=== PATIENT | female | born 1980 | race Caucasian/White ===

== ENCOUNTER 2019-08-16 10:03 | Emergency (ER) | payer SELFPAY ==
--- NOTE | 2019-08-16 11:06 | ER Document Report ---
HPI - HPI Time Seen by Provider: 08/16/19 10:39 Pain Level: Denies Notes: 38-year-old female presented emergency department with request for medication refill. Patient reports she takes anxiety medications however she is . She is unsure who to see for medication refill. She states she just moved to this area. Past Medical History - General Information source: Patient - Social History Smoking Status: Never Smoker Chew tobacco use (# tins/day): No Frequency of alcohol use: None Drug Abuse: None Family History: Reviewed & Not Pertinent Patient has suicidal ideation: No Patient has homicidal ideation: No Psychiatric Medical History: Reports: Hx Anxiety Vertical Provider Document - CONSTITUTIONAL Notes: PHYSICAL EXAMINATION: GENERAL: Well-appearing, well-nourished and in no acute distress. HEAD: Atraumatic, normocephalic. EYES: Pupils equal round extraocular movements intact, conjunctiva are normal. ENT: Nares patent NECK: Normal range of motion LUNGS: No respiratory distress Musculoskeletal: Normal range of motion NEUROLOGICAL: Normal speech, normal gait. PSYCH: Normal mood, normal affect. SKIN: Warm, Dry, normal turgor, no rashes or lesions noted. - INFECTION CONTROL TRAVEL OUTSIDE OF THE [place] IN LAST 30 DAYS: No Course - Re-evaluation Re-evalutation: Patient will be started on BuSpar, her current anxiety medication is a class C for . Gave outpatient resources for patient to follow-up with for further medication management. - Vital Signs Vital signs: Temp Pulse Resp BP Pulse Ox 99.2 F 79 16 117/73 99 08/16/19 10:25 08/16/19 10:25 08/16/19 10:25 08/16/19 10:25 08/16/19 10:25 Discharge - Discharge Clinical Impression: Anxiety during , Medication refill Condition: Stable Disposition: HOME, SELF-CARE Additional Instructions: Please follow-up with a list of resources that we have given you to set up an appointment with a mental health provider. They need to monitor your medications during . Please also keep any and all appointments with the health department and/or [facility] regarding her . Please return to the emergency department with any new or worsening symptoms. Prescriptions: Buspirone HCl [Buspar 5 mg Tablet] 1 tab PO BID #60 tab Metoclopramide HCl [Reglan 10 mg Tablet] 1 - 2 tab PO ASDIR PRN #25 tablet PRN Reason:
[2019-08-16 11:18] VITALS: BP 120/80
== END 2019-08-16 11:17 | disposition home or self-care (01) ==
LOC: ER 10:03
DX: O99.340 Other mental disorders complicating pregnancy, unspecified trimester (principal); F41.9 Anxiety disorder, unspecified
CPT/HCPCS: 99281

== ENCOUNTER → 2019-09-18 | Outpatient (CLI) | payer SELFPAY ==
--- NOTE | 2019-09-18 15:01 | RADIOLOGY REPORT (SQ) ---
EXAM DESCRIPTION: U/S OB LIMITED COMPLETED DATE/TIME: 09/18/2019 12:09 pm REASON FOR STUDY: Z34.81 ENCOUNTER FOR SUPRVSN OF NORMAL , FIRST TRIMESTER Z34.81 ENCOUNTE R FOR SUPRVSN OF NORMAL , FIRST TRIM COMPARISON: None. TECHNIQUE: Limited transabdominal grayscale ultrasound for evaluation of specific requested obstetri grover parameters. LIMITATIONS: None. FINDINGS: CERVICAL LENGTH: 4.2 cm. RUBIA: Largest vertical pocket up to 4.6 x 2.3 cm. Twin gestations look monochorionic, monoamniotic. FETUS A: FHR: 165 beats per minute. PRESENTATION: Variable. ANATOMY: Not assessed FETUS B: FHR: 160 beats per minute. PRESENTATION: Variable. ANATOMY: Not assessed OTHER: Anterior low lying placenta without abruption. No ovary lesions. Limited measurements sugges t 16 week 0 day gestations. IMPRESSION: LIMITED OBSTETRICAL ULTRASOUND WITH MEASURED PARAMETERS DELINEATED ABOVE. TWIN GESTATIO N. Trimester of : Second trimester - 13 weeks 1 day to 27 weeks 6 days. TECHNICAL DOCUMENTATION: JOB ID: [id number] 2010 [employer]- All Rights Reserved Reading location - IP/workstation name: [email or web address]
== END ==
LOC: RAD 11:25
PROVIDERS: ATTEND Midwife
DX: Z34.82 Encounter for supervision of other normal pregnancy, second trimester (principal)
CPT/HCPCS: 76815

== ENCOUNTER 2020-01-17 23:59 | Inpatient (IN) | payer MEDICAID ==
[2020-01-18] MEDS ORDERED: RINGERS SOLUTION,LACTATED 1,000 ML IV ONE (00:51)
[2020-01-18] MEDS ORDERED: PENICILLIN G POTASSIUM 5,000,000 UNIT in DEXTROSE 5%-WATER 100 ML IV ONE (00:51)
[2020-01-18] MEDS ORDERED: RINGERS SOLUTION,LACTATED 1,000 ML IV PRN ×2 (00:51→16:26)
[2020-01-18] MEDS ORDERED: BETAMET ACET/BETAMET NA INJ 6 MG/1 ML IM PRN ×2 (00:54→13:00)
[2020-01-18] MEDS ORDERED: PENICILLIN G-K 5 MILLION UNIT VIAL ONE ×3 (01:01→13:25)
[2020-01-18] MEDS ORDERED: BETAMET ACET/BETAMET NA INJ 6 MG/1 ML ONE (01:01)
--- NOTE | 2020-01-18 01:18 | Admission Physical ---
Datetime Report Generated by CPN: 01/18/2020 01:18 CURRENT ADMISSION Chief Complaint: Suspected Ruptured Membranes Indication for Induction: Not Applicable Admit Impression : Ruptured Membranes Admit Plan: Admit to Unit ALLERGIES Medication Allergies: Yes Latex: No Latex Allergies OBSTETRICAL HISTORY EDC: 03/04/2020 00:00 SEE RECORDS Alcohol: No Marijuana : No Cocaine: No Other Illicit Drugs: No Cigarettes: Current Everyday Smoker. [id number] Advised to Stop: Yes Cigarette Comments: vape PHYSICAL EXAM General: Normal HEENT: Normal Neurologic: Normal Thyroid: Normal Heart: Normal Lungs: Normal Breast: Deferred Back: Normal Abdomen: Normal Genitourinary Exam: Normal Extremities: Normal DTRs: Normal Pelvic Type: Adequate Vital Signs: Reviewed MEMBRANES Membranes: Ruptured FETUS A EGA: 33.3 Monitoring: External US FHR- Baseline: 130 Variability: Moderate 6-25bpm Decelerations: None FHR Category: Category I Admit Comment: Check a sono for position and cervix. PLANS FOR LABOR AND DELIVERY Labor and Delivery: None Pain Management: None Feeding Preference: Formula INFORMED CONSENT Signature: with User ID: [email or web address]
[2020-01-18 01:50] LABS: ABSOLUTE EOSINOPHILS # (AUTO) 0.1 10^3/uL (0.0-0.6); ABSOLUTE MONOCYTES (AUTO) 0.6 10^3/uL (0.1-1.4); ABSOLUTE NEUT (AUTO) 6.2 10^3/uL (1.7-8.2); BASOPHILS % (AUTO) 0.5 % (0-2); EOSINOPHILS % (AUTO) 1.2 % (0-6); HEMATOCRIT 28.8 % (36.0-47.0); HEMOGLOBIN 9.3 g/dL (12.0-15.5); LYMPHOCYTES % (AUTO) 12.7 % (13-45); MEAN CORPUSCULAR HEMOGLOBIN 27.4 pg (27.0-33.4); MEAN CORPUSCULAR HGB CONC 32.2 g/dL (32.0-36.0); MEAN CORPUSCULAR VOLUME 85 fl (80-97); MONOCYTES % (AUTO) 7.8 % (3-13); RED CELL DISTRIBUTION WIDTH 19.2 % (11.5-14.0); SEGMENTED NEUTROPHILS % (AUTO) 77.8 % (42-78); TOTAL CELLS COUNTED % (AUTO) 100 %; WHITE BLOOD COUNT 7.9 10^3/uL (4.0-10.5)
[2020-01-18 02:09] LABS: PLATELET COUNT 92 10^3/uL (150-450)
--- NOTE | 2020-01-18 02:48 | RADIOLOGY REPORT (SQ) ---
EXAM: OB ultrasound, limited CLINICAL DATA: 39-year-old female with twins, ruptured, positions. TECHNICAL DATA: Transabdominal ultrasound imaging was performed through the gravid uterus. This study was performed on 01/18/2020 at 2:01 AM COMPARISON: 09/18/2019. FINDINGS: FETUS A: ANATOMIC EVALUATION POSITION breech HEART RATE 150 bpm AMNIOTIC FLUID largest vertical pocket measures 2.6 cm PLACENTA LOCATION anterior PREVIA none FETUS B: ANATOMIC EVALUATION POSITION breech HEART RATE 147 bpm AMNIOTIC FLUID largest vertical pocket measures 3.7 cm PLACENTA LOCATION anterior PREVIA none CERVIX: Appears closed, measures approximately 5.1 cm in length; questionable fluid pocket posterior to cervix measuring 4.0 x 3.8 x 3.4 cm IMPRESSION: 1. Intrauterine, living twin , both in breech presentation. 2. Anterior placenta. 3. The cervix appears closed and appears to measure approximately 5.1 cm in length. 4. Questionable fluid pocket posterior to cervix measuring 4 cm in greatest dimension.
[2020-01-18 04:00] LABS: APPEARANCE,URINE CLOUDY; BILIRUBIN,URINE NEGATIVE (NEGATIVE); COLOR,URINE YELLOW; GLUCOSE, URINE NEGATIVE (NEGATIVE); KETONES,URINE TRACE mg/dL (NEGATIVE); LEUKOCYTE ESTERASE,URINE SMALL (NEGATIVE); NITRITE,URINE NEGATIVE (NEGATIVE); PROTEIN,URINE 100 mg/dL (NEGATIVE); URINE SPECIFIC GRAVITY 1.024; UROBILINOGEN,URINE NEGATIVE mg/dL (<2.0)
[2020-01-18 04:22] LABS: URINE AMPHETAMINES SCREEN NEGATIVE; URINE BARBITURATES SCREEN NEGATIVE; URINE BENZODIAZEPINES SCREEN NEGATIVE; URINE COCAINE SCREEN NEGATIVE; URINE MARIJUANA (THC) SCREEN NEGATIVE; URINE METHADONE SCREEN NEGATIVE; URINE PHENCYCLIDINE SCREEN NEGATIVE
[2020-01-18] MEDS: PENICILLIN G POTASSIUM 2,500,000 UNIT in DEXTROSE 5%-WATER 50 ML IV SCH ×3 (05:31→19:22)
[2020-01-18] MEDS ORDERED: CEFAZOLIN INJ 1 GM VIAL ONE (06:21)
[2020-01-18] MEDS ORDERED: CITRIC ACID/SODIUM CITRATE ORAL SOLN 15 ML UDCUP ONE (06:21)
[2020-01-18] MEDS ORDERED: PROMETHAZINE HCL INJ 25 MG/1 ML VIAL IV ONE (06:45)
[2020-01-18] MEDS ORDERED: NALBUPHINE HCL INJ 10 MG/1 ML AMPULE INJ ONE (06:45)
[2020-01-18] MEDS ORDERED: NALBUPHINE HCL INJ 10 MG/1 ML AMPULE ONE (06:49)
[2020-01-18] MEDS ORDERED: PROMETHAZINE HCL INJ 25 MG/1 ML VIAL ONE (06:49)
[2020-01-18] MEDS ORDERED: CEFAZOLIN SODIUM 2 GM in DEXTROSE 5%-WATER 50 ML IV PRN (07:15)
[2020-01-18 07:20] LABS: CHLAM PCR NOT DETECTED (NOT DETECT)
[2020-01-18] MEDS ORDERED: MAGNESIUM SULFATE 4 GM/100 ML RTUPB IV ONE ×2 (08:22→08:24)
[2020-01-18] MEDS ORDERED: MAGNESIUM SULFATE 20 GM/500 ML RTUINJ IV PRN (08:22)
[2020-01-18] MEDS ORDERED: MAGNESIUM SULFATE 20 GM/500 ML RTUINJ IV ONE (08:24)
[2020-01-18 09:39] LABS: URINE CREATININE 131.4 mg/dL (16-327)
[2020-01-18 09:39] LABS: ALBUMIN 2.8 g/dL (3.5-5.0); ALKALINE PHOSPHATASE 113 U/L (38-126); ANION GAP 7 (5-19); ASPARTATE AMINO TRANSFERASE 22 U/L (14-36); BILIRUBIN,TOTAL 0.3 mg/dL (0.2-1.3); BLOOD UREA NITROGEN 6 mg/dL (7-20); CALCIUM 8.9 mg/dL (8.4-10.2); CARBON DIOXIDE 19 mmol/L (22-30); CHLORIDE 113 mmol/L (98-107); GLUCOSE 95 mg/dL (75-110); POTASSIUM 4.7 mmol/L (3.6-5.0); TOTAL PROTEIN 5.4 g/dL (6.3-8.2); URIC ACID 7.4 mg/dL (2.5-7.0)
[2020-01-18 09:45] LABS: UR PRO/CREAT RATIO RESULT 1.9 mg/mg (0.0-0.2); URINE PROTEIN 245.2 mg/dL (<12)
[2020-01-18] MEDS ORDERED: OXYCODONE-ACETAMINOPHEN 5-325 MG TABLET PO ONE (11:17)
[2020-01-18] MEDS ORDERED: OXYCODONE-ACETAMINOPHEN 5-325 MG TABLET ONE (11:20)
[2020-01-18] MEDS ORDERED: NORMAL SALINE 250 ML IV PRN ×2 (13:13)
[2020-01-18 14:04] LABS: HEMATOCRIT 30.4 % (36.0-47.0); HEMOGLOBIN 9.9 g/dL (12.0-15.5); MEAN CORPUSCULAR HEMOGLOBIN 27.6 pg (27.0-33.4); MEAN CORPUSCULAR HGB CONC 32.6 g/dL (32.0-36.0); MEAN CORPUSCULAR VOLUME 85 fl (80-97); PLATELET COUNT 102 10^3/uL (150-450); RED CELL DISTRIBUTION WIDTH 19.9 % (11.5-14.0)
[2020-01-18 14:21] LABS: URIC ACID 7.6 mg/dL (2.5-7.0)
[2020-01-18 14:25] LABS: ALKALINE PHOSPHATASE 120 U/L (38-126); ANION GAP 8 (5-19); ASPARTATE AMINO TRANSFERASE 22 U/L (14-36); BILIRUBIN,TOTAL 0.6 mg/dL (0.2-1.3); BLOOD UREA NITROGEN 5 mg/dL (7-20); CALCIUM 8.3 mg/dL (8.4-10.2); CARBON DIOXIDE 18 mmol/L (22-30); CHLORIDE 106 mmol/L (98-107); GLUCOSE 99 mg/dL (75-110); POTASSIUM 4.6 mmol/L (3.6-5.0); TOTAL PROTEIN 5.7 g/dL (6.3-8.2)
[2020-01-18] MEDS ORDERED: FENTANYL CITRATE INJ/PF 100 MCG/2 ML AMPUL ONE (14:42)
[2020-01-18] MEDS ORDERED: OXYTOCIN/0.9 % SODIUM CHLORIDE 30 UNIT/500 ML RTUINJ ONE (14:42)
[2020-01-18] MEDS ORDERED: OXYTOCIN 10 UNIT/ML VIAL ONE (14:42)
[2020-01-18] MEDS ORDERED: PHENYLEPHRINE HCL INJ/PF 10 MG/1 ML SDV ONE (14:42)
[2020-01-18] MEDS ORDERED: KETOROLAC TROMETHAMINE INJ/PF 30 MG/1 ML SDV ONE (14:42)
[2020-01-18] MEDS ORDERED: ACETAMINOPHEN 1,000 MG/100 ML RTUPB IV ONE (14:42)
[2020-01-18] MEDS ORDERED: ONDANSETRON HCL INJ/PF 4 MG/2 ML SDV ONE (14:43)
[2020-01-18] MEDS ORDERED: SIMETHICONE 80 MG TAB.CHEW PO PRN (16:26)
[2020-01-18] MEDS ORDERED: ACETAMINOPHEN 1,000 MG/100 ML RTUPB IV PRN (16:26)
[2020-01-18] MEDS ORDERED: ACETAMINOPHEN 325 MG TABLET PO PRN (16:26)
[2020-01-18] MEDS ORDERED: PROMETHAZINE HCL INJ 25 MG/1 ML VIAL IV PRN (16:26)
[2020-01-18] MEDS ORDERED: OXYCODONE-ACETAMINOPHEN 5-325 MG TABLET PO PRN (16:26)
[2020-01-18] MEDS ORDERED: MEASLES,MUMPS&RUBELLA VACC/PF 0.5 ML VIAL SUBCUT PRN (16:26)
[2020-01-18] MEDS ORDERED: DIPH/PERTUSS(ACELL)/TETANUS VAC/PF 0.5 ML SYR (>=10YO) IM PRN (16:26)
[2020-01-18] MEDS ORDERED: OXYTOCIN/0.9 % SODIUM CHLORIDE 30 UNIT/500 ML RTUINJ IV PRN (16:26)
[2020-01-18] MEDS ORDERED: MORPHINE SULFATE 10 MG/ML INJ IV PRN (16:26)
--- NOTE | 2020-01-18 16:37 | Operative Report ---
Operative Report DATE OF SURGERY: 01/18/20 PREOPERATIVE DIAGNOSIS: IUP @ 33 3/7 wks, di/di twin gestation, PPROM, Labor, breech/breech presentations, undesired fertility POSTOPERATIVE DIAGNOSIS: same OPERATION: Primary low transverse hysterotomy section with [place] tubal ligation SURGEON: FLOR[place] CAMPA ANESTHESIA: Spinal TISSUE REMOVED OR ALTERED: Placentas, bilateral fallopian tube segments COMPLICATIONS: None ESTIMATED BLOOD LOSS: 1000 cc INTRAOPERATIVE FINDINGS: Twin A male devi breech presentation Apgars of 8 and 9 weight 5 pounds 3 ounces, twin B male devi breech presentation Apgars of 8 and 9, weight 4 pounds 7 ounces PROCEDURE: The patient was taken to the operating room, prepared and draped in anormal sterile fashion in a supine position with a leftward tilt. A transverse skin incision was made with a scalpel and carried through tothe underlying layer of fascia with the same scalpel. The fascia was excised in the midline and extended laterally with Shravan. The fascia was then dissected from the rectus muscle sharply with Shravan and the rectus muscle was divided and the peritoneal cavity was entered sharply with the same Metzenbaum. With good visualization of the bladder and the uterus the bladder blade was inserted. The hysterotomy was nicked with a scalpel and extended laterally with surgeon finger fraction. The infant A was then delivered atraumatically. The nose and mouth were suctioned with a suction bulb, the cord was clamped and cut and handed off to awaiting pediatricians. Cord blood was collected. The infant B was then delivered after amniotomy was performed with a hemostat. Nose and mouth were suctioned with a suction bulb the cord was clamped and cut . Cord blood was collected . This umbilical cord was marked with an umbilical clamp . the placenta was removed manually. The uterus was exteriorized and cleared of clots and debris. The hysterotomy was closed with 0 Monocryl in a running, locked fashion. A second layer of the same suture was used to imbricate to ensure hemostasis. Attention was then turned to the fallopian tubes where the right fallopian tube was grasped with a [place], the mesosalpinx was divided with a Bovie. a 3-1/2 cm segment of fallopian tube was tied off with 2 pieces of 2-0 chromic.this segment was ligated using Metzenbaums and the pedicles were made hemostatic with the Bovie. This procedure was repeated on the left fallopian tube without difficulty. The uterus was returned to the abdomen and peritoneal cavity was cleared of clots and debris. The pedicles were inspected and they were still hemostatic. The rectus muscle and peritoneum were repaired with mattress stitch of 2-0 Chromic. The fascia was closed with 0-Vicryl. The subcutaneous layer was closed with plain catgut and the skin was closed with 4-0 Vicryl. The patient tolerated the procedure well. Sponge, lap, and needle counts correct x2 and the patient was taken to recovery in stable condition.
[2020-01-18] MEDS: OXYCODONE-ACETAMINOPHEN 5-325 MG TABLET PO PRN (18:57)
[2020-01-18] MEDS: DOCUSATE SODIUM 100 MG CAPSULE PO SCH (19:24)
[2020-01-18] MEDS: KETOROLAC TROMETHAMINE INJ/PF 30 MG/1 ML SDV IV SCH (22:10)
[2020-01-19] MEDS: PENICILLIN G POTASSIUM 2,500,000 UNIT in DEXTROSE 5%-WATER 50 ML IV SCH ×2 (02:14→05:35)
[2020-01-19] MEDS: KETOROLAC TROMETHAMINE INJ/PF 30 MG/1 ML SDV IV SCH (05:46)
[2020-01-19 07:05] LABS: HEPATITS B SURFACE ANTIGEN Negative (Negative)
[2020-01-19 08:34] LABS: HEMATOCRIT 21.9 % (36.0-47.0); MEAN CORPUSCULAR HEMOGLOBIN 27.7 pg (27.0-33.4); MEAN CORPUSCULAR HGB CONC 32.7 g/dL (32.0-36.0); MEAN CORPUSCULAR VOLUME 85 fl (80-97); RED BLOOD COUNT 2.58 10^6/uL (3.72-5.28); WHITE BLOOD COUNT 8.3 10^3/uL (4.0-10.5)
[2020-01-19 08:39] LABS: PLATELET COUNT 98 10^3/uL (150-450)
[2020-01-19 08:57] LABS: HEMOGLOBIN 7.2 g/dL (12.0-15.5)
--- NOTE | 2020-01-19 09:00 | PDOC PROGRESS REPORT ---
Subjective-OB Progress Note for:: 01/19/20 Physical Exam (OB) Vital Signs: Temp Pulse Resp BP Pulse Ox 98.1 F 79 16 136/71 H 98 01/19/20 07:27 01/19/20 07:27 01/19/20 07:27 01/19/20 07:27 01/19/20 07:27 Intake & Output 01/18/20 01/19/20 01/20/20 06:59 06:59 06:59 Output Total 950 Balance -950 Weight 97 kg - PIH/Pre-Eclampsia DTR's: 2 + Clonus: Negative Headache: Absent Epigastric Pain: No Visual Changes: No - Dressing Removed: No Incision: Dressing - Lochia Lochia Amount: Scant < 10 ml Lochia Color: Rubra/Red - Abdomen Description: Soft, Round Hernia Present: No Bowel Sounds: Normoactive Flatus Presence: Present Stool: No Fundal Description: Firm, Midline Fundal Height: u/u - u/2 Objective-Diagnostic Laboratory: 01/19/20 07:45 01/18/20 13:27 01/18/20 01/18/20 01/18/20 01:26 01:26 13:27 WBC 8.0 RBC 3.60 L Hgb 9.9 L Hct 30.4 L MCV 85 MCH 27.6 MCHC 32.6 RDW 19.9 H Plt Count 102 L Sodium 138.6 Potassium 4.7 Chloride 113 H Carbon Dioxide 19 L Anion Gap 7 BUN 6 L Creatinine 0.61 Est GFR ( Amer) > 60 Glucose 95 Uric Acid 7.4 H Calcium 8.9 Total Bilirubin 0.3 AST 22 Alkaline Phosphatase 113 Total Protein 5.4 L Albumin 2.8 L Blood Type O POSITIVE Antibody Screen NEGATIVE 01/18/20 01/18/20 01/19/20 13:27 13:27 07:45 WBC 8.3 RBC 2.58 L Hgb 7.2 L D Hct 21.9 L MCV 85 MCH 27.7 MCHC 32.7 RDW 20.0 H Plt Count 98 L Sodium 132.1 L Potassium 4.6 Chloride 106 Carbon Dioxide 18 L Anion Gap 8 BUN 5 L Creatinine 0.59 Est GFR ( Amer) > 60 Glucose 99 Uric Acid 7.6 H Calcium 8.3 L Total Bilirubin 0.6 AST 22 Alkaline Phosphatase 120 Total Protein 5.7 L Albumin 3.0 L Blood Type Antibody Screen
[2020-01-19] MEDS: DOCUSATE SODIUM 100 MG CAPSULE PO SCH ×2 (09:21→17:47)
[2020-01-19] MEDS: PRENATAL VITAMIN W DHA CAPSULE PO SCH (09:21)
[2020-01-19] MEDS ORDERED: IRON SUCROSE COMPLEX INJ/PF 100 MG/5 ML SDV IV ONE (11:00)
[2020-01-19] MEDS: OXYCODONE-ACETAMINOPHEN 5-325 MG TABLET PO PRN ×3 (11:16→22:18)
[2020-01-19] MEDS: IBUPROFEN 800 MG TABLET PO SCH ×2 (11:17→17:48)
--- NOTE | 2020-01-19 14:37 | Delivery Summary ---
Del Sum A-C Datetime Report Generated by CPN: 01/19/2020 14:37 DELIVERY PERSONNEL DELIVERY PERSONNEL: [id number] Delivery Doctor:: Coby Vargas MD Anesthesiologist:: Deandre Sy MD PELLETIZER:: Kathryn Redd PELLETIZER Airport Traffic Controller:: Temi Lewis, RN [place] Winder/POULTRY FIELD SERVICE TECHNICIAN: Shirajavier Gonsalez, PROSPECT MANAGER [place]/POULTRY FIELD SERVICE TECHNICIAN: Joyce Penaloza, PROSPECT MANAGER MATERNAL INFORMATION Delivery Anesthesia: Spinal Medications After Delivery: Pitocin 30 Units in 500ml NS/D5W Estimated Blood Loss (ml): 800 Maternal Complications: Premature Rupture of Membranes LABOR SUMMARY EDC: 03/04/2020 00:00 No. Babies in Womb: 2 LABOR INFORMATION Reason for Induction: Not Applicable Oxytocin: N/A Group B Beta Strep: Unknown Antibiotics # of Doses: 3 Antibiotics Time of Last Dose: 1330 Name of Antibiotic Given: Pennicillin Steroids Given: Partial Course Reason Steroids Not Administered: Not Applicable MEMBRANES Membranes Rupture Method: Spontaneous Rupture of Membranes: 01/17/2020 22:30 Length of Rupture (hr): 17.27 Amniotic Fluid Color: Clear Amniotic Fluid Amount: Small Amniotic Fluid Odor: Normal STAGES OF LABOR Stage 3 hr: 0 Stage 3 min: 3 CSECTION DELIVERY Primary Indication: Breech Presentation CSection Urgency: Non-Scheduled CSection Incidence: Primary Labor: N/A Elective: N/A CSection Incision: Lower Uterine Transverse Sterilization Procedure: Maria Isabel BABY A INFORMATION Infant Delivery Date/Time: 01/18/2020 15:46 Method of Delivery: Nurse Controlled Delivery: No Born in Route : No : N/A Forceps: N/A Vacuum Extraction: N/A Shoulder Dystocia : No PRESENTATION/POSITION BABY A Presentation: Breech Breech Presentation: Elias PLACENTA INFORMATION BABY A Placenta Delivery Time : 01/18/2020 15:49 Placenta Method of Delivery: Manual Removal Placenta Status: Delivered SCORES BABY A Heart Rate 1 min: >100 bpm Resp Effort 1 min: Good Cry Reflex Irritability 1 min: Cough or Sneeze or Pulls Away Muscle Tone 1 min: Active Motion Color 1 min: Blue/Pale Resuscitation Effort 1 min: Tactile Stimulation SCORE 1 MIN: 8 Heart Rate 5 min: >100 bpm Resp Effort 5 min: Good Cry Reflex Irritability 5 min: Cough or Sneeze or Pulls Away Muscle Tone 5 min: Active Motion Color 5 min: Body [place] Green, Extremities Blue Resuscitation Effort 5 min: Tactile Stimulation; Oxygen; PPV/NCPAP SCORE 5 MIN: 9 INFANT INFORMATION BABY A Gestational Age at Delivery: 33.0 Gestational Status: - <34 Weeks Infant Outcome : Liveborn Condition : Stable Sex: Male IDENTIFICATION BABY A Infant Verification Date/Time: 01/18/2020 17:21 ID Band Number: [id number] Mother's Name Verified: Yes RN Verifying Infant: Reji Joshua HINES Additional Verifying Personnel: Jeff Banuelos RN CORD INFORMATION BABY A No. Cord Vessels: 3 Nuchal Cord : N/A Cord Blood Taken: Yes-For Storage (Mom's Blood type +) ASSESSMENT BABY A Skin to Skin: No BABY B INFORMATION Delivery Date/Time: 01/18/2020 15:47 Method of Delivery : Nurse Controlled Delivery: No Born in Route : No : N/A Forceps : N/A Vacuum Extraction: N/A Shoulder Dystocia : No SHOULDER DYSTOCIA BABY B Infant Delivery Date/Time: 01/18/2020 15:47 PRESENTATION/POSITION BABY B Presentation : Breech Cephalic Position : N/A Breech Position: Elias ROM/PLACENTA INFO BABY B Rupture of Membranes: 01/17/2020 22:30 Length of Rupture (hr): 17.28 Placenta Delivery Time : 01/18/2020 15:49 Placenta Method of Delivery: Manual Removal Placental Status : Delivered INFANT INFORMATION BABY B Gestational Age at Delivery: 33.0 Gestational Status : - <34 Weeks Infant Outcome : Liveborn Infant Condition : Stable Sex : Male IDENTIFICATION BABY B Verification Date/Time: 01/18/2020 17:22 ID Band Number : [id number] Mother's Name Verified: Yes RN Verifying : R Joshua Rn Additional Verifying Personnel: C Vin RN CORD INFORMATION BABY B No. Cord Vessels : 3 Nuchal Cord : N/A Cord Blood Taken : Yes-For Storage (Mom's Blood Type +)
[2020-01-19] MEDS ORDERED: IBUPROFEN 800 MG TABLET PO SCH (18:00)
[2020-01-20] MEDS: IBUPROFEN 800 MG TABLET PO SCH ×4 (01:03→17:49)
[2020-01-20] MEDS: OXYCODONE-ACETAMINOPHEN 5-325 MG TABLET PO PRN ×5 (03:31→22:45)
--- NOTE | 2020-01-20 11:10 | PDOC PROGRESS REPORT ---
Subjective-OB Progress Note for:: 01/20/20 Subjective: Pt doing well, tearful about being away from other kids and unknown length of stay for twins. She wants to get started back on her Effexor for depression/anxiety. Reports light bleeding, reg diet and +flatus. Physical Exam (OB) Vital Signs: Temp Pulse Resp BP Pulse Ox 98.0 F 78 16 144/74 H 99 01/20/20 07:20 01/20/20 07:20 01/20/20 07:20 01/20/20 07:20 01/20/20 07:20 Intake & Output 01/19/20 01/20/20 01/21/20 06:59 06:59 06:59 Intake Total 2680 Output Total 950 1600 Balance -950 1080 - PIH/Pre-Eclampsia DTR's: 1 + Clonus: Negative Headache: Absent Epigastric Pain: No Visual Changes: No - Dressing Removed: No Incision: Well Approximated Closure Type: Surgical Glue - Lochia Lochia Amount: Small 10-25 ml Lochia Color: Rubra/Red - Abdomen Description: Soft, Round Hernia Present: No Fundal Description: Firm, Midline Fundal Height: u/u - u/2 Objective-Diagnostic Laboratory: 01/19/20 07:45 01/18/20 13:27 01/18/20 05:30 Vaginal/Anorectal Group B Streptococcus Culture - Final NO GROUP B STREPTOCOCCUS RECOVERED Assessment and Plan(PN) - Assessment and Plan (1) Anemia Qualifiers: Anemia type: unspecified type Qualified Code(s): D64.9 - Anemia, unspecified Is this a current diagnosis for this admission?: Yes (2) Depression with anxiety Is this a current diagnosis for this admission?: Yes (3) delivery Is this a current diagnosis for this admission?: Yes (4) premature rupture of membranes (PPROM) with unknown onset of labor Is this a current diagnosis for this admission?: Yes (5) Twin Qualifiers: Multiple gestation type: monochorionic and diamniotic Trimester: third trimester Qualified Code(s): O30.033 - Twin , monochorionic/diamniotic, third trimester Is this a current diagnosis for this admission?: Yes - Time Spent with Patient Time with patient: Less than 15 minutes Medications reviewed and adjusted accordingly: Yes - Disposition Anticipated Discharge: Home Within: within 24 hours
[2020-01-20] MEDS: PRENATAL VITAMIN W DHA CAPSULE PO SCH (11:56)
[2020-01-20] MEDS: DOCUSATE SODIUM 100 MG CAPSULE PO SCH ×2 (11:56→17:47)
[2020-01-20] MEDS ORDERED: DIPHENHYDRAMINE HCL 50 MG CAPSULE ONE (14:27)
[2020-01-20] MEDS ORDERED: DIPHENHYDRAMINE HCL 50 MG CAPSULE PO ONE (15:00)
[2020-01-21] MEDS: IBUPROFEN 800 MG TABLET PO SCH ×3 (00:57→12:26)
[2020-01-21] MEDS: OXYCODONE-ACETAMINOPHEN 5-325 MG TABLET PO PRN ×2 (05:56→10:45)
--- NOTE | 2020-01-21 09:05 | PDOC PROGRESS REPORT ---
Subjective-OB Progress Note for:: 01/21/20 Subjective: sitting up in bed eating bkf, tearful cause hsb has not held baby and if she goes home she may not be able to come back for visitation, waiting for someone to give her some answers. rash better, eating and drinking, pain under control Physical Exam (OB) Vital Signs: Temp Pulse Resp BP Pulse Ox 98.5 F 77 18 133/80 H 97 01/21/20 07:18 01/21/20 07:18 01/21/20 07:18 01/21/20 07:18 01/21/20 07:18 Intake & Output 01/20/20 01/21/20 01/22/20 06:59 06:59 06:59 Intake Total 2680 2580 Output Total 1600 Balance 1080 2580 - PIH/Pre-Eclampsia DTR's: 1 + Clonus: Negative Headache: Absent Epigastric Pain: No Visual Changes: No - Dressing Removed: No Incision: Well Approximated Closure Type: Surgical Glue - Lochia Lochia Amount: Scant < 10 ml Lochia Color: Rubra/Red - Abdomen Description: Tender, Soft Hernia Present: No Fundal Description: Firm, Midline Fundal Height: u/u - u/2 Objective-Diagnostic Laboratory: 01/19/20 07:45 01/18/20 13:27 01/18/20 05:30 Vaginal/Anorectal Group B Streptococcus Culture - Final NO GROUP B STREPTOCOCCUS RECOVERED Assessment and Plan(PN) - Assessment and Plan (1) Twin , delivered by section, current hospitalization Is this a current diagnosis for this admission?: Yes (2) Anemia Qualifiers: Anemia type: iron deficiency Is this a current diagnosis for this admission?: Yes (3) Depression with anxiety Is this a current diagnosis for this admission?: Yes (4) delivery Is this a current diagnosis for this admission?: Yes (5) Twin Qualifiers: Multiple gestation type: monochorionic and diamniotic Trimester: third trimester Qualified Code(s): O30.033 - Twin , monochorionic/diamniotic, third trimester Is this a current diagnosis for this admission?: Yes (6) premature rupture of membranes (PPROM) with unknown onset of labor Is this a current diagnosis for this admission?: Yes - Time Spent with Patient Time with patient: Less than 15 minutes Medications reviewed and adjusted accordingly: Yes - Disposition Anticipated Discharge: Home Within: within 24 hours
--- NOTE | 2020-01-21 09:18 | PDOC DISCHARGE SUMMARY ---
Impression - Admit/DC Date/PCP Admission Date/Primary Care Provider: 01/18/20 00:45 WILLIAM CHAVES MD Discharge Date: 01/21/20 - Discharge Diagnosis (1) Twin , delivered by section, current hospitalization Is this a current diagnosis for this admission?: Yes (2) Anemia Is this a current diagnosis for this admission?: Yes (3) Depression with anxiety Is this a current diagnosis for this admission?: Yes (4) delivery Is this a current diagnosis for this admission?: Yes (5) Twin Is this a current diagnosis for this admission?: Yes (6) premature rupture of membranes (PPROM) with unknown onset of labor Is this a current diagnosis for this admission?: Yes (7) Gestational diabetes mellitus (GDM) Is this a current diagnosis for this admission?: Yes - Additional Information Resuscitation Status: Full Code Discharge Diet: As Tolerated Discharge Activity: Activity As Tolerated, No Lifting Over 10 Pounds, No Lifting/Push/Pulling, Pelvic Rest Referrals: WILLIAM CHAVES MD [Primary Care Provider] - (A 1 week) Prescriptions: Oxycodone HCl/Acetaminophen [Percocet 5-325 mg Tablet] 1 tab PO Q4HP PRN #20 tablet PRN Reason: Ibuprofen [Motrin 800 mg Tablet] 800 mg PO Q6 #30 tablet Home Medications: Glyburide 1.25 mg PO QHS 01/18/20 Vit,Calc76/Iron/Folic [Pnv 29-1 Tablet] 1 tab PO DAILY 01/18/20 Ibuprofen [Motrin 800 mg Tablet] 800 mg PO Q6 #30 tablet 01/21/20 Oxycodone HCl/Acetaminophen [Percocet 5-325 mg Tablet] 1 tab PO Q4HP PRN #20 tablet 01/21/20 Additional Information: Effexor 150 sent to [facility] by Katie Zurita this AM, so pt will start today HPI Gestational Age: 33.3 Reason(s) for Admission: Ceasarean Section-Primary, PROM, Labor, Twins Procedures: NST, Ultrasound Intrapartum Procedure(s): : Low Cervical, Transverse Hospital Course Hospital Course: routine post op Results Laboratory Results: WBC 8.3 10^3/uL (4.0-10.5) 01/19/20 07:45 RBC 2.58 10^6/uL (3.72-5.28) L 01/19/20 07:45 Hgb 7.2 g/dL (12.0-15.5) L D 01/19/20 07:45 Hct 21.9 % (36.0-47.0) L 01/19/20 07:45 MCV 85 fl (80-97) 01/19/20 07:45 MCH 27.7 pg (27.0-33.4) 01/19/20 07:45 MCHC 32.7 g/dL (32.0-36.0) 01/19/20 07:45 RDW 20.0 % (11.5-14.0) H 01/19/20 07:45 Plt Count 98 10^3/uL (150-450) L 01/19/20 07:45 Lymph % (Auto) 12.7 % (13-45) L 01/18/20 01:26 [place] % (Auto) 7.8 % (3-13) 01/18/20 01:26 Eos % (Auto) 1.2 % (0-6) 01/18/20 01:26 Baso % (Auto) 0.5 % (0-2) 01/18/20 01:26 Absolute Neuts (auto) 6.2 10^3/uL (1.7-8.2) 01/18/20 01:26 Absolute Lymphs (auto) 1.0 10^3/uL (0.5-4.7) 01/18/20 01:26 Absolute Monos (auto) 0.6 10^3/uL (0.1-1.4) 01/18/20 01:26 Absolute Eos (auto) 0.1 10^3/uL (0.0-0.6) 01/18/20 01:26 Absolute Basos (auto) 0.0 10^3/uL (0.0-0.2) 01/18/20 01:26 Seg Neutrophils % 77.8 % (42-78) 01/18/20 01:26 Sodium 132.1 mmol/L (137-145) L 01/18/20 13:27 Potassium 4.6 mmol/L (3.6-5.0) 01/18/20 13:27 Chloride 106 mmol/L (98-107) 01/18/20 13:27 Carbon Dioxide 18 mmol/L (22-30) L 01/18/20 13:27 Anion Gap 8 (5-19) 01/18/20 13:27 BUN 5 mg/dL (7-20) L 01/18/20 13:27 Creatinine 0.59 mg/dL (0.52-1.25) 01/18/20 13:27 Est GFR ( Amer) > 60 (>60) 01/18/20 13:27 Est GFR (MDRD) Non-Af > 60 (>60) 01/18/20 13:27 Glucose 99 mg/dL (75-110) 01/18/20 13:27 POC Glucose 114 mg/dL (70-110) H 01/20/20 08:58 Uric Acid 7.6 mg/dL (2.5-7.0) H 01/18/20 13:27 Calcium 8.3 mg/dL (8.4-10.2) L 01/18/20 13:27 Total Bilirubin 0.6 mg/dL (0.2-1.3) 01/18/20 13:27 Direct Bilirubin 0.0 mg/dL (0.0-0.4) 01/18/20 13:27 Neonat Total Bilirubin Not Reportable 01/18/20 13:27 Neonat Direct Bilirubin Not Reportable 01/18/20 13:27 Neonat Indirect Bili Not Reportable 01/18/20 13:27 AST 22 U/L (14-36) 01/18/20 13:27 ALT 10 U/L (<35) 01/18/20 13:27 Alkaline Phosphatase 120 U/L (38-126) 01/18/20 13:27 Lactate Dehydrogenase 185 U/L (120-246) 01/18/20 13:27 Total Protein 5.7 g/dL (6.3-8.2) L 01/18/20 13:27 Albumin 3.0 g/dL (3.5-5.0) L 01/18/20 13:27 Urine Color YELLOW 01/18/20 00:05 Urine Appearance CLOUDY 01/18/20 00:05 Urine pH 5.0 (5.0-9.0) 01/18/20 00:05 Ur Specific [place] 1.024 01/18/20 00:05 Urine Protein 100 mg/dL (NEGATIVE) H 01/18/20 00:05 Urine Glucose (UA) NEGATIVE mg/dL (NEGATIVE) 01/18/20 00:05 Urine Ketones TRACE mg/dL (NEGATIVE) H 01/18/20 00:05 Urine Blood MODERATE (NEGATIVE) H 01/18/20 00:05 Urine Nitrite NEGATIVE (NEGATIVE) 01/18/20 00:05 Urine Bilirubin NEGATIVE (NEGATIVE) 01/18/20 00:05 Urine Urobilinogen NEGATIVE mg/dL (<2.0) 01/18/20 00:05 Ur Leukocyte Esterase SMALL (NEGATIVE) H 01/18/20 00:05 Urine WBC (Auto) 87 /HPF 01/18/20 00:05 Urine RBC (Auto) 38 /HPF 01/18/20 00:05 U Hyaline Cast (Auto) 3 /LPF 01/18/20 00:05 Urine Bacteria (Auto) 3+ /HPF 01/18/20 00:05 Urine WBC Clumps FEW /HPF 01/18/20 00:05 Squamous Epi Cells Auto 11 /HPF 01/18/20 00:05 U Non-Squamous Epis Auto 1 /HPF 01/18/20 00:05 Urine Mucus (Auto) FEW /LPF 01/18/20 00:05 Urine Creatinine 131.4 mg/dL (16-327) 01/18/20 00:05 Protein/Creatinin Ratio 1.9 mg/mg (0.0-0.2) H 01/18/20 00:05 Urine Total Protein 245.2 mg/dL (<12) H 01/18/20 00:05 Urine Ascorbic Acid NEGATIVE (NEGATIVE) 01/18/20 00:05 Membranes Rupture POSITIVE (NEGATIVE) H 01/18/20 00:21 Urine Opiates Screen NEGATIVE 01/18/20 00:05 Urine Methadone Screen NEGATIVE 01/18/20 00:05 Ur Barbiturates Screen NEGATIVE 01/18/20 00:05 Ur Phencyclidine Scrn NEGATIVE 01/18/20 00:05 Ur Amphetamines Screen NEGATIVE 01/18/20 00:05 U Benzodiazepines Scrn NEGATIVE 01/18/20 00:05 Urine Cocaine Screen NEGATIVE 01/18/20 00:05 U Marijuana (THC) Screen NEGATIVE 01/18/20 00:05 RPR NONREACTIVE (NONREACTIVE) 01/18/20 01:26 Chlamydia DNA (PCR) NOT DETECTED (NOT DETECT) 01/18/20 05:30 Hep Bs Antigen Negative (Negative) 01/18/20 01:26 N.gonorrhoeae DNA (PCR) NOT DETECTED (NOT DETECT) 01/18/20 05:30 Rubella IgG Antibody 5.32 IU/mL 01/18/20 01:26 Rubella IgG Ab Interp NEGATIVE 01/18/20 01:26 Blood Type O POSITIVE 01/18/20 01:26 Blood Type Confirm O POSITIVE 01/18/20 13:31 Antibody Screen NEGATIVE 01/18/20 01:26 Crossmatch See Detail 01/18/20 01:26 Impressions: Obstetrics Ultrasound 01/18/20 00:00 IMPRESSION: 1. Intrauterine, living twin , both in breech presentation. 2. Anterior placenta. 3. The cervix appears closed and appears to measure approximately 5.1 cm in length. 4. Questionable fluid pocket posterior to cervix measuring 4 cm in greatest dimension. Plan Health Concerns: depression, Plan of Treatment: d/c home, restart effexor 150 Goals: no complications Time Spent: Less than 30 Minutes
[2020-01-21] MEDS: DOCUSATE SODIUM 100 MG CAPSULE PO SCH (10:45)
[2020-01-21] MEDS: PRENATAL VITAMIN W DHA CAPSULE PO SCH (10:45)
[2020-01-21] MEDS ORDERED: VENLAFAXINE HCL 75 MG TABLET PO SCH (11:00)
[2020-01-21 11:28] VITALS: BP 144/86
== END 2020-01-21 14:02 | disposition home or self-care (01) | DRG 785 ==
LOC: LC 23:59 → LR 01-18 00:45 → 2N 01-18 18:41
PROVIDERS: ADMIT Obstetrics & Gynecology; ATTEND Obstetrics & Gynecology
PROC: 10D00Z1 Extraction of Products of Conception, Low, Open Approach (ICD-10-PCS; principal; 2020-01-18)
PROC: 0UB70ZZ Excision of Bilateral Fallopian Tubes, Open Approach (ICD-10-PCS; 2020-01-18)
PROC: 3E0234Z Introduction of Serum, Toxoid and Vaccine into Muscle, Percutaneous Approach (ICD-10-PCS; 2020-01-21)
DX: O32.1XX1 Maternal care for breech presentation, fetus 1 (principal); O32.1XX2 Maternal care for breech presentation, fetus 2; O42.913 Preterm premature rupture of membranes, unspecified as to length of time between rupture and onset of labor, third trimester; O99.334 Smoking (tobacco) complicating childbirth; F17.290 Nicotine dependence, other tobacco product, uncomplicated; O99.344 Other mental disorders complicating childbirth; F41.8 Other specified anxiety disorders; O99.02 Anemia complicating childbirth; D64.9 Anemia, unspecified; O24.425 Gestational diabetes mellitus in childbirth, controlled by oral hypoglycemic drugs; O30.033 Twin pregnancy, monochorionic/diamniotic, third trimester; Z3A.33 33 weeks gestation of pregnancy; Z37.2 Twins, both liveborn; Z23 Encounter for immunization
CPT/HCPCS: 1961; 36415; 76815; 80053; 80307; 81001; 82570; 82962; 83615; 84112; 84156; 84550; 85025; 85027; 86592; 86762; 86850; 86900; 86901; 86920; 87070; 87081; 87340; 87491; 87591; 88302; 88307; 90715; 94760; 94799; 96372; 99140; J0131; J0690; J0702; J1756; J1885; J2270; J2300; J2370; J2405; J2540; J2550; J2590; J3010; J3475; J3490; J7120